=== PATIENT | female | born 1945 | race Caucasian/White ===

== ENCOUNTER 2020-03-20 14:57 | Emergency (ER) | payer MEDICARE ==
[2020-03-20 15:25] LABS: INR-International Normal Ratio 1.8; Prothrombin Time 20.6 sec (12.0-14.7)
--- NOTE | 2020-03-20 15:29 | CT ---
CT Brain WO Con History: Fall Comparison: CT brain February 24, 2020 Findings: Similar left temporal cystic encephalomalacia. Progressive evolution right posterior pariet al lobe infarct. No acute hemorrhage. No midline shift. 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 Calvarium is intact. Old osseous nasal septal fracture. Impression: 1. Progressive evolution of right posterior parietal infarction. 2. 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 3. No acute hemorrhage or sequela of acute intracranial abnormality.
--- NOTE | 2020-03-20 15:29 | CT ---
CT CERVICAL SPINE WITHOUT CONTRAST: 03/20/20 HISTORY: Injury, neck pain. COMPARISON: 02/24/20. FINDINGS/IMPRESSION: Degenerative changes in the cervical spine with loss of cervical lordosis is again seen with stable m inimal anterolisthesis of C4 over C5. No acute fracture, subluxation or facet malalignment is seen. POS: [facility]
[2020-03-20] MEDS ORDERED: Ziprasidone 20 MG VIAL ONE ×2 (16:13→16:14)
== END 2020-03-20 16:52 ==
LOC: NAV ERS 14:57
DX: S00.03XA Contusion of scalp, initial encounter (principal); J44.9 Chronic obstructive pulmonary disease, unspecified; I50.9 Heart failure, unspecified; I48.91 Unspecified atrial fibrillation; E11.9 Type 2 diabetes mellitus without complications; Z86.73 Personal history of transient ischemic attack (TIA), and cerebral infarction without residual deficits; K21.9 Gastro-esophageal reflux disease without esophagitis; G47.00 Insomnia, unspecified; F41.9 Anxiety disorder, unspecified; F32.9 Major depressive disorder, single episode, unspecified; W19.XXXA Unspecified fall, initial encounter
CPT/HCPCS: 70450; 72125; 85610; 96372; J3486